=== PATIENT | female | born 1995 | race African-American/Black ===

== ENCOUNTER 2021-12-03 15:58 | Emergency (ER) | payer MEDICAID ==
[~2021-12-03] VITALS: Ht 157.5 cm; Wt 75.0 kg
[2021-12-03 21:00] VITALS: BP 110/76
== END 2021-12-03 21:30 | disposition left against medical advice (07) ==
LOC: ER 15:58
DX: R60.0 Localized edema (principal); F11.90 Opioid use, unspecified, uncomplicated
CPT/HCPCS: 71045; 93005; 93970; 99285